=== PATIENT | male | born 1980 | race African-American/Black ===

== ENCOUNTER 2019-03-28 23:57 | Emergency (ER) | payer SELFPAY ==
--- NOTE | 2019-03-29 03:41 | RADIOLOGY REPORT (SQ) ---
EXAM DESCRIPTION: XR FINGERS COMPLETED DATE/TME: 03/29/2019 00:00 CLINICAL HISTORY: 38 years Male, swelling/pain right index finger COMPARISON: None. Findings: Known soft tissue injury of the right second finger; no radioopaque foreign body. Bones, joints, and soft tissues of the RIGHT XR FINGERS 3 VIEWS appear otherwise intact. IMPRESSION: Soft tissue injury; else, no acute findings. .
[2019-03-29] MEDS ORDERED: LIDOCAINE 1% INJ-PF (10 MG/ML) 30 ML SDV INJ ONE (04:09)
[2019-03-29] MEDS ORDERED: HYDROCODONE/ACETAMINOPHEN 5-325 MG TABLET PO ONE (04:10)
[2019-03-29] MEDS ORDERED: BUPIVACAINE HCL 0.5 % INJ/PF 30 ML SDV INJ ONE (04:10)
[2019-03-29] MEDS ORDERED: CEPHALEXIN 500 MG CAPSULE PO ONE (06:12)
[2019-03-29] MEDS ORDERED: SULFAMETHOXAZOLE/TRIMETHOPRIM 800-160 MG TABLET PO ONE (06:12)
--- NOTE | 2019-03-29 07:07 | ER Document Report ---
Entered by NETTIE ALFARO SCRIBE 03/29/19 0625 Acting as scribe for:NADIA WILKS DO ED Hand/Wrist Injury - General Chief Complaint: Finger Injury Stated Complaint: FINGER INJURY Time Seen by Provider: 03/29/19 03:42 Primary Care Provider: KAREN BUCHANAN DO [ACTIVE STAFF] - Follow up as needed Notes: Patient is a 38-year-old male who presents to the emergency department today with complaints of right index finger pain. Patient states approximately 3 days ago he slammed his finger in a door. Patient states there was no bleeding or laceration during this event but he does admit that he picks/bites his nails frequently. Patient states he has noticed increased swelling and pain over the last 3 days. Patient is a [id number] pianist. TRAVEL OUTSIDE OF THE [place] IN LAST 30 DAYS: No - Related Data Allergies/Adverse Reactions: No Known Allergies Allergy (Unverified 07/27/15 11:24) Past Medical History - General Information source: Patient - Social History Smoking Status: Unknown if Ever Smoked Drug Abuse: None Family History: Reviewed & Not Pertinent - Immunizations Hx Diphtheria, Pertussis, Tetanus Vaccination: No Review of Systems - Review of Systems Constitutional: No symptoms reported Musculoskeletal: See HPI, Joint pain, Other - Left index finger pain. Skin: See HPI Hematologic/Lymphatic: No symptoms reported Neurological/Psychological: No symptoms reported Physical Exam - Notes Notes: PHYSICAL EXAM GENERAL: Alert, interacts well. No acute distress. HEAD: Normocephalic, atraumatic. EYES: Pupils equal, round, and reactive to light. Extraocular movements intact. ENT: Oral mucosa moist, tongue midline. NECK: Full range of motion. Supple. Trachea midline. LUNGS: Clear to auscultation bilaterally, no wheezes, rales, or rhonchi. No respiratory distress. HEART: Regular rate and rhythm. No murmurs, gallops, or rubs. ABDOMEN: Soft, non-tender. Non-distended. Bowel sounds present in all 4 quadrants. No guarding, rigidity, or rebound. EXTREMITIES: Very limited flexion at the right index finger DIP joint. Slightly Limited flexion in the right index finger PIP joint. Full range of motion at the right index finger MCP joint. Erythema to the pad of the right second digit with some swelling but it is not yet tense, currently no evidence of felon. No tenderness palpation along the flexor tendon of the right second digit. Large paronychia to the ulnar aspect of the right second finger. Radial and ulnar pulses are 2+ on the right arm. NEUROLOGICAL: Alert and oriented x3. Normal speech. PSYCH: Normal affect, normal mood. SKIN: As above. Course - Re-evaluation Re-evalutation: 03/29/19 06:20 Paronychia was incised and drained, there was moderate debridement, this abscess was quite extensive, no evidence of tendon involvement at this time however it did go down to the bone. No evidence of felon at this time however there is a surrounding cellulitis. Patient will be started on Bactrim and Keflex, instructed on Epsom salt soaks, encouraged to return in 48 hours if the swelling has not significantly improved or if it has worsened at all. Also follow-up with Dr. Buchanan, hand surgeon as an outpatient if he has any worsening. Procedures - Incision and Drainage Right Hand 2nd digit Type: Complex, Single Anesthetic type: 1% Lidocaine, 0.5% Bupivacaine mL's of anesthetic: 5 Blade size: 11 I&D procedure: Shurclens applied Incision Method: Incision made by scalpel Notes: 03/29/19 06:22 skin and muscle was debrided, loculations were broken up using blunt dissection. Large amount of purulent and bloody drainage was obtained. Discharge - Discharge Clinical Impression: Paronychia of finger of right hand, Abscess of finger of right hand Condition: Stable Disposition: HOME, SELF-CARE Additional Instructions: You had an extensive abscess surrounding the fingernail of the second finger of your right hand. It extended further than it typically would. There was a lot of tissue around it which had to be removed. Please soak your finger in Epsom salts soaks twice a day and take your antibiotics as directed until they are gone. If the swelling increases, you develop fevers or you are unable to flex and extend your finger after 24 hours please return to the emergency department or follow-up with Dr. Buchanan as an outpatient. Epsom Salt Soaks Soak the wound area in a container of warm epsom salt water. If you can't get the wound area into a bucket or deal, use a folded towel soaked in the epsom salt solution and apply to the area. Use clean hot tap water (about the temperature of a very warm bath), mixing in about one (1) teaspoon for every pint of water. Two gallon --> 16 teaspoons Epsom Salts One gallon --> 8 teaspoons Epsom Salts Two quarts --> 4 teaspoons Epsom Salts One quart --> 2 teaspoons Epsom Salts Soak the wound for about 20 minutes while gently moving it around in the water. Repeat this four (4) times a day. Prescriptions: Cephalexin Monohydrate [Keflex 500 mg Capsule] 1,000 mg PO BID #28 capsule Sulfamethoxazole/Trimethoprim [Bactrim Ds Tablet] 1 each PO BID #14 tablet Forms: Return to Work Referrals: KAREN BUCHANAN, [ACTIVE STAFF] - Follow up as needed I personally performed the services described in the documentation, reviewed and edited the documentation which was dictated to the scribe in my presence, and it accurately records my words and actions.
[2019-03-29 07:11] VITALS: BP 129/81
== END 2019-03-29 07:12 | disposition home or self-care (01) ==
LOC: ER 23:57
DX: L03.011 Cellulitis of right finger (principal)
CPT/HCPCS: 99283; 73140; 10060; J3490 ×2